=== PATIENT | male | born 1995 ===

== ENCOUNTER 2020-07-29 08:38 | Day surgery (SDC) | payer OTHER ==
[~2020-07-29] VITALS: Ht 188 cm; Wt 107.0 kg
[2020-07-29] VITALS (12 sets, daily range): BP systolic 122–179; BP diastolic 73–99
[~2020-07-29 08:38] MED LIST: SOFO1TAB PO; clindamycin-Cleocin 900mg/D5W 50 ML IV ONE; famotidine 20mg tablet PO ONE; fentaNYL /PF 50mcg/ml 5ml ampule ONE; midazolam 2 mg/2 ml injection ONE; ringers solution, lacted 1,000 ML IV SCH
[2020-07-29] MEDS ORDERED: sevoflurane 250ml liquid IH ONE (10:44)
[2020-07-29] MEDS ORDERED: propofol 10mg/ml 20ml vial IV ONE (10:44)
[2020-07-29] MEDS ORDERED: morphine 2 MG/ML inj. syringe IV PRN ×2 (12:05→12:15)
[2020-07-29] MEDS ORDERED: proCHLORperazine 10 MG/2 ml inj IV PRN ×2 (12:05→12:15)
[2020-07-29] MEDS ORDERED: morphine 4 MG/ML inj SYRINge IV PRN ×2 (12:05→12:15)
[2020-07-29] MEDS ORDERED: meperidine/PF 25mg/ml syringe IV PRN ×5 (12:05→12:15)
[2020-07-29] MEDS ORDERED: ringers solution, lacted 1,000 ML IV SCH ×2 (12:05→12:11)
[2020-07-29] MEDS ORDERED: ondansetron/PF 4mg/2ml inj IV PRN ×2 (12:05→12:15)
--- NOTE | 2020-07-29 13:04 | NUR ---
RECEIVED VIA GURNEY ACCOMPANIED BY ANESTHESIOLOGIST DR SHAH AND 2 OFFICERS, REPORT GIVEN. PT DROWSY BUT AROUSES. 20 GAUGE PIV L WRIST PATENT AND RUNNING LR AT 100 ML/HR. 4X4, JOCELYNE, 6" GERDA WITH BRACE CDI TO LEFT KNEE. PPULSES PALPABLE, BRISK CAP REFILL, SKIN PINK AND WARM, VSS, RESTING COMFORTABLY.
[2020-07-29] MEDS: meperidine/PF 25mg/ml syringe IV PRN ×2 (13:29→13:43)
--- NOTE | 2020-07-29 14:34 | NUR ---
PT AWAKE AND ALERT . 20 GAUGE PIV L WRIST DC/D CATH TIP INTACT. 4X4, JOCELYNE, 6" GERDA WITH BRACE CDI TO LEFT KNEE. PPULSES PALPABLE, BRISK CAP REFILL, SKIN PINK AND WARM, VSS, WITH STATED PAIN RELIEF. ABLE TO TOLERATE FLUIDS, DRESS AND TRANSFER TO WHEELCHAIR. D/C CRITERIA MET, OFFICERS GIVEN DISCHARGE INSTRUCTIONS. TRANSPORTED VIA WHEELCHAIR BY OFFICER ACCOMPANIED BY MYSELF TO SKILLED NURSING VEHICLE TO RETURN TO SKILLED NURSING.
== END 2020-07-29 14:34 | disposition home or self-care (01) ==
LOC: PAS 08:38 → EEVIPCON 12:30 → PAS 14:34
PROVIDERS: ATTEND Orthopaedic Surgery
DX: T84.490A Other mechanical complication of muscle and tendon graft, initial encounter (principal); B19.20 Unspecified viral hepatitis C without hepatic coma; F19.10 Other psychoactive substance abuse, uncomplicated; G89.18 Other acute postprocedural pain; Z79.899 Other long term (current) drug therapy; Z88.8 Allergy status to other drugs, medicaments and biological substances; Y83.8 Other surgical procedures as the cause of abnormal reaction of the patient, or of later complication, without mention of misadventure at the time of the procedure; Y92.89 Other specified places as the place of occurrence of the external cause
CPT/HCPCS: 29888; 64447; 76942; 82948; C1713; C1776; J2175; J2250; J2405; J2704; J3010; A4215; A4618; A6449; A7000; J3490; J7120